=== PATIENT | female | born 1970 | race Hispanic/Latino ===

== ENCOUNTER 2020-10-11 04:35 | Emergency (ER) | payer OTHER ==
[~2020-10-11] VITALS: Ht 160 cm; Wt 88.5 kg
[2020-10-11] MEDS ORDERED: AUGMENTIN 875-1 EACH PO (05:13)
== END 2020-10-11 05:18 | disposition home or self-care (01) ==
LOC: ER 04:54
DX: H66.91 Otitis media, unspecified, right ear (principal); E11.9 Type 2 diabetes mellitus without complications; K21.9 Gastro-esophageal reflux disease without esophagitis
CPT/HCPCS: 99283